=== PATIENT | male | born 1995 | race American Indian/Alaskan Native ===

== ENCOUNTER 2019-07-25 16:51 | Emergency (ER) | payer SELFPAY ==
[2019-07-25] MEDS ORDERED: IBUPROFEN 600 MG TAB PO ONE (21:09)
[2019-07-25] MEDS ORDERED: predniSONE 20 MG TAB PO ONE (21:09)
[2019-07-25] MEDS ORDERED: ACETAMINOPHEN 500 MG TAB PO ONE (21:09)
--- NOTE | 2019-07-25 22:23 | Emergency Department Report ---
- General Chief Complaint: Upper Respiratory Infection Stated Complaint: FLU SYMPTOMS Source: patient Mode of arrival: Ambulatory Limitations: No Limitations - History of Present Illness Initial Comments: Patient is a 24-year-old -[place] male with no past medical history who presents to the ED with complaint of acute onset persistent diffuse aches and pains, nasal and sinus congestion, frontal sinus pressure and headache, sore throat, persistent cough with white phlegm for the last 3 days. Patient also complains of subjective fever and chills and lack of appetite. Patient states that some of his children have had similar symptoms. Patient denies chest pain, shortness of breath, dizziness, change in vision, syncope, abdominal pain, dysuria, urinary frequency and urgency and hemoptysis. MD Complaint: fever, cough, sore throat, rhinorrhea, nasal congestion, other (diffuse body aches and pains) -: Sudden, days(s) (3) Severity: severe Severity scale (0 -10): 6 Quality: sharp Consistency: constant Improves With: nothing Worsens With: nothing Context: sick contacts Associated Symptoms: denies other symptoms, fever, chills, myalgias, headache, rhinorrhea, nasal congestion, sore throat, cough. denies: stiff neck, chest pain, shortness of breath, abdominal pain, nausea, vomiting, diarrhea, dysuria, rash, confusion, weight loss, epistaxis, hoarseness, ear pain Treatments Prior to Arrival: none - Related Data Previous Rx's Medication Instructions Recorded Last Taken Type Amoxicillin [Trimox CAP] 500 mg PO Q8H #30 capsule 07/25/19 Unknown Rx Brompheniramine/Pseudoephed/Dm 118 ml PO Q6H PRN #118 ml 07/25/19 Unknown Rx [Bromfed Dm Cough Syrup] Cetirizine HCl [Zyrtec 10mg tab] 10 mg PO DAILY #30 tablet 07/25/19 Unknown Rx Ibuprofen [Motrin] 600 mg PO Q8H PRN #24 tablet 07/25/19 Unknown Rx predniSONE [Deltasone] 40 mg PO QDAY #10 tab 07/25/19 Unknown Rx Allergies Allergy/AdvReac Type Severity Reaction Status Date / Time No Known Allergies Allergy Unverified 07/25/19 16:59 ED Review of Systems ROS: Stated complaint: FLU SYMPTOMS Other details as noted in HPI Constitutional: denies: chills, fever Eyes: denies: eye pain, eye discharge, vision change ENT: throat pain, congestion Respiratory: cough. denies: shortness of breath, wheezing Cardiovascular: denies: chest pain, palpitations, syncope, paroxysmal nocturnal dyspnea Endocrine: no symptoms reported Gastrointestinal: denies: abdominal pain, nausea, diarrhea Genitourinary: denies: urgency, dysuria Musculoskeletal: denies: back pain, joint swelling, arthralgia Skin: denies: rash, lesions Neurological: headache. denies: weakness, paresthesias Psychiatric: denies: anxiety, depression Hematological/Lymphatic: denies: easy bleeding, easy bruising ED Past Medical Hx - Past Medical History Previous Medical History?: No - Surgical History Past Surgical History?: No - Social History Smoking Status: Current Every Day Smoker Substance Use Type: None - Medications Home Medications: Home Medications Medication Instructions Recorded Confirmed Last Taken Type Amoxicillin [Trimox CAP] 500 mg PO Q8H #30 capsule 07/25/19 Unknown Rx Brompheniramine/Pseudoephed/Dm 118 ml PO Q6H PRN #118 ml 07/25/19 Unknown Rx [Bromfed Dm Cough Syrup] Cetirizine HCl [Zyrtec 10mg tab] 10 mg PO DAILY #30 tablet 07/25/19 Unknown Rx Ibuprofen [Motrin] 600 mg PO Q8H PRN #24 tablet 07/25/19 Unknown Rx predniSONE [Deltasone] 40 mg PO QDAY #10 tab 07/25/19 Unknown Rx ED Physical Exam - General Limitations: No Limitations General appearance: alert, in no apparent distress - Head Head exam: Present: atraumatic, normocephalic, normal inspection - Eye Eye exam: Present: normal appearance, PERRL, EOMI Pupils: Present: normal accommodation - ENT ENT exam: Present: mucous membranes moist, TM's normal bilaterally, normal exte rnal ear exam, other (grossly congested nasal passages, palpable frontal sinus tenderness, erythematous oropharynx) - Neck Neck exam: Present: normal inspection, full ROM - Respiratory Respiratory exam: Present: normal lung sounds bilaterally. Absent: respiratory distress, wheezes, rales, rhonchi, chest wall tenderness, accessory muscle use, decreased breath sounds - Cardiovascular Cardiovascular Exam: Present: regular rate, normal rhythm, normal heart sounds. Absent: systolic murmur, diastolic murmur, rubs, gallop - GI/Abdominal GI/Abdominal exam: Present: soft, normal bowel sounds. Absent: tenderness, guarding, rebound, hyperactive bowel sounds, hypoactive bowel sounds - Extremities Exam Extremities exam: Present: normal inspection, full ROM, normal capillary refill - Back Exam Back exam: Present: normal inspection, full ROM. Absent: tenderness, muscle spasm, paraspinal tenderness, vertebral tenderness - Neurological Exam Neurological exam: Present: alert, oriented X3, CN II-XII intact, normal gait, reflexes normal - Psychiatric Psychiatric exam: Present: normal affect, normal mood - Skin Skin exam: Present: warm, dry, intact, normal color. Absent: rash ED Course Vital Signs 07/25/19 07/25/19 07/25/19 19:27 21:31 21:32 Temperature 98.2 F Pulse Rate 61 Respiratory 18 18 18 Rate Blood Pressure 157/96 [Right] O2 Sat by Pulse 97 Oximetry ED Medical Decision Making - Medical Decision Making This is a 24-year-old male presented to the ED with flulike symptoms characterized by nasal and sinus congestion, frontal sinus pressure and headache, sore throat, diffuse body aches and pain with dry cough and lack of appetite for the last 3 days. In the ED, patient is alert and oriented 3 and is not in distress. Patient was treated for pain in the ED and discharged home on medications. Patient was advised to drink plenty of fluids, take medications and follow-up with the primary care physician in 7-10 days for reevaluation or return to the ED immediately if symptoms get worse. - Differential Diagnosis Flu; URI; Strep pharyngitis; bronchitis; pneumonia Critical care attestation.: If time is entered above; I have spent that time in minutes in the direct care of this critically ill patient, excluding procedure time. ED Disposition Clinical Impression: Flu-like symptoms, Acute upper respiratory infection Acute frontal sinusitis Qualifiers: Recurrence: non-recurrent Qualified Code(s): J01.10 - Acute frontal sinusitis, unspecified Acute bronchitis Qualifiers: Bronchitis organism: unspecified organism Qualified Code(s): J20.9 - Acute bronchitis, unspecified Disposition: -01 TO HOME OR SELFCARE Is pt being admited?: No Does the pt Need Aspirin: No Condition: Stable Instructions: Acute Bronchitis (ED), Acute Bacterial Rhinosinusitis (ED), Upper Respiratory Infection (ED) Additional Instructions: Take medications with food, drink plenty of fluids and follow-up with your primary care physician in 7-10 days for reevaluation. Return to the ED immediately if symptoms get worse. Prescriptions: Brompheniramine/Pseudoephed/Dm [Bromfed Dm Cough Syrup] 118 ml PO Q6H PRN #118 ml PRN Reason: Cough predniSONE [Deltasone] 40 mg PO QDAY #10 tab Ibuprofen [Motrin] 600 mg PO Q8H PRN #24 tablet PRN Reason: Pain Amoxicillin [Trimox CAP] 500 mg PO Q8H #30 capsule Cetirizine HCl [Zyrtec 10mg tab] 10 mg PO DAILY #30 tablet Referrals: LIN SHARP MD [Staff Physician] - 7-10 days Time of Disposition: 22:21 Print Language: DANISH
[2019-07-25 22:30] VITALS: BP 133/87
== END 2019-07-25 22:30 | disposition home or self-care (01) ==
LOC: ED 16:51
DX: J06.9 Acute upper respiratory infection, unspecified (principal); J01.10 Acute frontal sinusitis, unspecified; J20.9 Acute bronchitis, unspecified; F17.200 Nicotine dependence, unspecified, uncomplicated; Z79.899 Other long term (current) drug therapy
CPT/HCPCS: 99282; J7512